=== PATIENT | female | born 1950 | race African-American/Black ===

== ENCOUNTER 2023-06-29 12:14 | Emergency (ER) | payer OTHER, MEDICAID ==
[~2023-06-29] VITALS: Ht 162.6 cm; Wt 82.0 kg
[2023-06-29 12:25] VITALS: BP 141/72; PULSE 74; RESP 18; TEMP 98.6; O2SAT 100
[2023-06-29] MEDS ORDERED: EPIN0.3P3 IM (13:49)
[2023-06-29] MEDS ORDERED: DEXAMETHASONE 2MG TABLET PO ONE (14:00)
== END 2023-06-29 15:04 | disposition home or self-care (01) ==
LOC: ER 12:14
DX: T78.40XA Allergy, unspecified, initial encounter (principal); I10 Essential (primary) hypertension; E11.9 Type 2 diabetes mellitus without complications; Z98.890 Other specified postprocedural states; X58.XXXA Exposure to other specified factors, initial encounter
CPT/HCPCS: 99281; J8540